=== PATIENT | male | born 2000 | race African-American/Black ===

== ENCOUNTER 2025-06-09 22:54 | Emergency (ER) | payer OTHER, SELFPAY ==
[2025-06-09 22:58] VITALS: BP 128/74; PULSE 69; RESP 16; TEMP 36.6; O2SAT 100
--- NOTE | 2025-06-09 23:35 | ED_ITS ---
HPI - General Adult General Chief complaint: Allergic Reaction Stated complaint: ?allergic reaction Time Seen by Provider: 06/09/25 23:25 History of Present Illness HPI narrative: Patient is a 24-year-old male who presents to the emergency department this evening complaining of possible allergic old reaction to ibuprofen. Patient states that he went to an urgent care earlier today as he was having some inflammation in his left hand. The prescribed him naproxen and gave him a Motrin pill in the urgent care. Patient states that when he got home after taking the Motrin he noticed that his lips were swollen. States that he has not filled the naproxen yet. Patient states that he has taken ibuprofen/NSAIDs in the past without any reaction so he is unsure why his lips swelled up. He states that despite taking Benadryl at home he noticed that the swelling has not decreased. Denies any tongue swelling, any change in his voice, any throat swelling or closing, any difficulty breathing. No additional symptoms or concerns at this time. Related Data Allergies Allergy/AdvReac Type Severity Reaction Status Date / Time Penicillins Allergy Unknown Verified 06/09/25 23:50 Review of Systems Review of Systems: All systems are reviewed and are negative unless stated otherwise in the HPI. Exam Narrative: General: Alert, awake, afebrile, in no acute distress. HEENT: PERRL, no rhinorrhea, no post nasal drip, oropharynx clear, swelling to both upper and lower lip, moderate, no tongue swelling. Neck: Trachea midline, no JVD, no lymphadenopathy. Cardiovascular: Regular rate and rhythm, no murmurs, rubs or gallops, no peripheral edema. Respiratory: Clear to auscultation bilaterally, no tachypnea, no wheezing, no rhonchi, no rubs, no respiratory distress. Abdomen: Soft, nontender, nondistended, no rebound, no guarding, no peritoneal signs. Musculoskeletal: No joint swelling or deformity, normal muscle tone. Skin: No rashes or petechia, no signs of infection. Psychiatric: Alert and oriented, normal behavior and judgment for situation. Neurological: Alert and oriented to person, place, and time. Follows all commands. No focal deficits, speech is clear and fluent. Course Vital Signs Vital signs: Vital Signs Temperature 97.8 F 06/09/25 22:58 Pulse Rate 69 06/09/25 22:58 Respiratory Rate 16 06/09/25 22:58 Blood Pressure 128/74 06/09/25 22:58 Pulse Oximetry 100 06/09/25 22:58 Oxygen Delivery Room Air 06/09/25 22:58 Temperature 97.8 F 06/09/25 22:58 Pulse Rate 61 06/10/25 00:32 Respiratory Rate 17 06/10/25 00:32 Blood Pressure 117/80 06/10/25 00:32 Pulse Oximetry 100 06/10/25 00:32 Oxygen Delivery Room Air 06/09/25 23:58 Medical Decision Making MDM Narrative Medical decision making narrative: The patient was evaluated by myself in the emergency department. History is obtained from patient who is an independent historian and physical exam was performed. External medical records were reviewed at this time. IV was established and pertinent tests were ordered. Patient was administered 50 mg of IV Benadryl, 20 mg IV Pepcid and 125 mg of IV Solu-Medrol. Differential diagnosis considerations include allergic reaction, angioedema. Comorbidities impacting this visit include none. I have evaluated and discussed social determinants of health with the patient that could potentially impact subsequent diagnosis and treatment plans. On repeat assessment of the patient, reevaluation revealed that the patient is doing well and is in no acute distress. Patient symptoms have improved since he arrived to our emergency department. Repeat vital signs were all reviewed and noted to be stable. Differential diagnosis and treatment plan were discussed with the patient at bedside. Patient agrees with discussion and after shared medical decision making agrees with discharge. All questions were answered to the patient's satisfaction. Patient will follow up with his PCP in 3-5 days. Patient was provided with strict return precautions and instructed to return to the emergency department if any new or worsening symptoms develop. The patient was discharged in stable condition. Vital Signs Vital Signs: Vital Signs Temperature 97.8 F 06/09/25 22:58 Pulse Rate 69 06/09/25 22:58 Respiratory Rate 16 06/09/25 22:58 Blood Pressure 128/74 06/09/25 22:58 Pulse Oximetry 100 06/09/25 22:58 Oxygen Delivery Room Air 06/09/25 22:58 Temperature 97.8 F 06/09/25 22:58 Pulse Rate 61 06/10/25 00:32 Respiratory Rate 17 06/10/25 00:32 Blood Pressure 117/80 06/10/25 00:32 Pulse Oximetry 100 06/10/25 00:32 Oxygen Delivery Room Air 06/09/25 23:58 Discharge Plan Discharge Clinical Impression: Allergic reaction Patient Disposition: Home Condition: Improved Instructions: Antibiotic Form, Allergies (ED) Additional Instructions: Please follow-up with your family doctor within the next 3-5 days. Return emergency department if any new or worsening symptoms develop. Patient Language: [place] Follow-up/Referrals: PHYSICIAN,SENIOR RESEARCH ANALYST [Primary Care Provider] - Thad Puente MD [Physician] - 3 Days Time of Disposition: 23:39
[2025-06-09] MEDS: FAMOTIDINE 20 MG/2 ML VIAL IV PUSH (23:49)
[2025-06-09 23:58] VITALS: O2SAT 100
--- NOTE | 2025-06-10 00:31 | PC.NURSE ---
Patient states improvement in the lip swelling after med administration. ERP notified.
[2025-06-10 00:32] VITALS: BP 117/80; PULSE 61; RESP 17; O2SAT 100
[2025-06-10 00:48] VITALS: BP 117/80; PULSE 69; RESP 16; O2SAT 100
== END 2025-06-10 00:53 | disposition home or self-care (01) ==
PROVIDERS: Emergency Provider Emergency Medicine
DX: T78.40XA Allergy, unspecified, initial encounter (principal); X58.XXXA Exposure to other specified factors, initial encounter
CPT/HCPCS: 96374; 96375; 99284; J1200; J2919